=== PATIENT | female | born 1985 | race Caucasian/White ===

== ENCOUNTER 2022-10-01 21:17 | Emergency (ER) | payer MEDICAID ==
[~2022-10-01] VITALS: Ht 170.2 cm; Wt 69.0 kg
[2022-10-01] MEDS ORDERED: SODIUM CHLORIDE 0.9% 1,000 ML IV ONE (23:00)
[2022-10-01] MEDS ORDERED: PIPERACILLIN/TAZOBACTAM 3.375GM/50ML PREMIX IV NR (23:00)
[2022-10-01 23:12] LABS: BASOPHILS % 0.8 % (0.0-2.0); EOSINOPHILS % 9.1 % (0.0-5.0); HEMATOCRIT. 44.4 % (36.0-48.0); LYMPHOCYTES % 22.1 % (20.0-50.0); MEAN CORPUSCULAR HEMOGLOBIN 32.1 pg (28.0-32.0); MEAN CORPUSCULAR VOLUME 94.9 fL (81.0-99.0); MEAN PLATELET VOLUME 8.4 fl (7.4-10.4); PLATELET 256 x1000/uL (130-400); RED BLOOD CELL COUNT 4.68 mill/uL (4.2-5.4)
[2022-10-01 23:19] LABS: CHLORIDE 105 mEq/L (98-107)
[2022-10-01 23:23] LABS: HCG SCREEN NEGATIVE
[2022-10-02] MEDS ORDERED: AMOX1TAB16 MT (00:55)
[2022-10-02 02:01] VITALS: BP 124/81
== END 2022-10-02 02:03 | disposition home or self-care (01) ==
LOC: ER 21:17
DX: M79.89 Other specified soft tissue disorders (principal); J45.909 Unspecified asthma, uncomplicated; Z88.2 Allergy status to sulfonamides
CPT/HCPCS: 36415; 73130; 80053; 83605; 84703; 85025; 87040; 96365; 99284; J2543; J7030